=== PATIENT | female | born 1955 | race Two or more races ===

== ENCOUNTER 2023-08-21 12:47 | Outpatient (CLI) | payer OTHER | END 2023-08-21 12:49 | disposition home or self-care (01) | LOC: NUCLEAR 12:47 | PROVIDERS: ATTEND Psychiatry & Neurology Neurology | DX: G30.9 Alzheimer's disease, unspecified (principal) | CPT/HCPCS: 78803; A9557 ==

== ENCOUNTER 2024-10-29 14:03 | Outpatient (CLI) | payer OTHER | END 2024-10-29 14:09 | disposition home or self-care (01) | LOC: MRI 14:03 | DX: G30.9 Alzheimer's disease, unspecified (principal) | CPT/HCPCS: 70551 ==